=== PATIENT | female | born 1970 | race Caucasian/White ===

== ENCOUNTER 2020-12-23 15:07 | Emergency (ER) | payer MEDICAID, OTHER ==
[2020-12-23] MEDS ORDERED: Insulin Glarg,Human.Rec.Analog 100 Unit/ML SUBCUT ONE (15:08)
--- NOTE | 2020-12-23 18:10 | EDM.PDOC ---
Scribed by Amanda Quarles 12/23/20 1810 for Leanne Cunningham NP ED HPI GENERAL MEDICAL PROBLEM - General Chief Complaint: Diabetic Complaint Stated Complaint: SUGAR LEVEL 548, RIGHT FINGER, LEG GONE NUMB Time Seen by Provider: 12/23/20 17:35 Source of Information: Reports: Patient, RN, RN Notes Reviewed History Limitations: Reports: No Limitations - History of Present Illness INITIAL COMMENTS - FREE TEXT/NARRATIVE: Patient is a 50-year-old female who presents to ER with complaint of elevated blood sugar. States she is out of her meds and pharmacy would not fill her insulin for her. States she has been experiencing blurred vision, dry mouth, numbness to right laterally and some fingers. Has not had insulin over 1 week. No diarrhea, shortness of breath, and frequent headaches (normal for her). She has had no nausea, vomiting, diarrhea, chest pain, fever, chills, open wounds. She has no had COVID. She has had 2 doses of COVID vaccination. Onset: Gradual Duration: Getting Worse Severity: Moderate Improves with: Reports: None Worsens with: Reports: None Associated Symptoms: Reports: No Other Symptoms - Related Data Allergies Allergy/AdvReac Type Severity Reaction Status Date / Time No Known Allergies Allergy Verified 12/23/20 16:31 Home Meds: Home Meds Cyclobenzaprine [Flexeril] 10 mg PO TID PRN 12/23/20 [History] FLUoxetine [PROzac] 40 mg PO DAILY 12/23/20 [History] Insulin Glargine,Hum.Rec.Anlog [Basaglar Kwikpen U-100] 50 units SQ BID 12/23/20 [History] Liraglutide [Victoza 2-Nishant] 1.2 mg INJECT DAILY 12/23/20 [History] Omeprazole 20 mg PO DAILY 12/23/20 [History] Ondansetron [Zofran ODT] 4 mg PO Q6H PRN 12/23/20 [History] Promethazine [Phenergan] 25 mg PO Q8H PRN 12/23/20 [History] SUMAtriptan succinate [Imitrex] 100 mg PO ASDIRECTED 12/23/20 [History] atorvaSTATin [Lipitor] 80 mg PO BEDTIME 12/23/20 [History] glipiZIDE [Glucotrol XL] 20 mg PO BID 12/23/20 [History] oxyCODONE ER [OxyCONTIN] 10 mg PO Q6H PRN 12/23/20 [History] Past Medical History Endocrine/Metabolic History: Reports: Diabetes, Type II - Past Surgical History GI Surgical History: Reports: Lysis of Adhesions Social & Family History - Tobacco Use Tobacco Use Status *Q: Never Tobacco User - Caffeine Use Caffeine Use: Reports: Coffee, Energy Drinks, Soda, Tea - Recreational Drug Use Recreational Drug Use: No ED ROS GENERAL - Review of Systems Review Of Systems: Comprehensive ROS is negative, except as noted in HPI. ED EXAM GENERAL NO PERIP PULSE - Physical Exam Exam: See Below Exam Limited By: No Limitations General Appearance: Alert, WD/WN, No Apparent Distress Eye Exam: Bilateral Eye: EOMI, Normal Inspection, PERRL Ears: Normal External Exam, Normal Canal, Hearing Grossly Normal, Normal TMs Nose: Normal Inspection, Normal Mucosa, No Blood Throat/Mouth: Normal Inspection, Normal Lips, Normal Teeth, Normal Gums, Normal Oropharynx, Normal Voice, No Airway Compromise Head: Atraumatic, Normocephalic Neck: Normal Inspection, Supple, Non-Tender, Full Range of Motion Respiratory/Chest: No Respiratory Distress, Lungs Clear, Normal Breath Sounds, No Accessory Muscle Use, Chest Non-Tender Cardiovascular: Normal Peripheral Pulses, Regular Rate, Rhythm, No Edema, No Gallop, No JVD, No Murmur, No Rub GI/Abdominal: Normal Bowel Sounds, Soft, Non-Tender, No Organomegaly, No Distention, No Abnormal Bruit, No Mass (Female) Exam: Deferred Rectal (Female) Exam: Deferred Back Exam: Normal Inspection, Full Range of Motion, NT Extremities: Normal Inspection, Normal Range of Motion, Non-Tender, Normal Capillary Refill, No Pedal Edema Neurological: Other (right pinky finger numbness as well as numbness to lateral right leg. ) Psychiatric: Normal Affect, Normal Mood Lymphatic: No Adenopathy Course - Vital Signs Last Recorded V/S: Last Vital Signs Temp 98 F 12/23/20 16:36 Pulse 96 12/23/20 16:36 Resp 20 12/23/20 16:36 BP 123/78 12/23/20 16:36 Pulse Ox 97 12/23/20 16:36 - Orders/Labs/Meds Orders: Active Orders 24 hr Category Date Time Status POC Glucose [Blood Glucose Check, Bedside] [RC] ONETIME Care 12/23/20 16:43 Active Dextrose 50% in Water Med 12/23/20 18:30 Active 50 ml IV Q15M PRN Glucagon,Human Recombinant [GlucaGen] Med 12/23/20 18:30 Active 1 mg IM Q15M PRN Medication Orders Dextrose/Water (50% Dextrose In Water 50 Ml Syringe) 50 ml IV Q15M PRN PRN Reason: Hypoglycemia Glucagon (Glucagon,Human Recombinant 1 Mg Vial) 1 mg IM Q15M PRN PRN Reason: Hypoglycemia Labs: Laboratory Tests 12/23/20 12/23/20 12/23/20 Range/Units 16:17 18:03 18:03 WBC 9.2 (5.0-10.0) 10^3/uL RBC 4.87 (4.2-5.4) 10^6/uL Hgb 13.9 (12.0-16.0) g/dL Hct 42.9 (37.0-47.0) % MCV 88.1 (80-100) fL MCH 28.5 (27.0-34.0) pg MCHC 32.4 L (33.0-35.0) g/dL Plt Count 380 (150-450) 10^3/uL Neut % (Auto) 64.5 (42.2-75.2) % Lymph % (Auto) 28.4 (20.5-50.1) % Day % (Auto) 6.0 (2-8) % Eos % (Auto) 0.8 L (1.0-3.0) % Baso % (Auto) 0.3 (0.0-1.0) % Sodium 136 (136-145) mmol/L Potassium 4.0 (3.5-5.1) mmol/L Chloride 99 (98-107) mmol/L Carbon Dioxide 27 (21-32) mmol/L Anion Gap 14.0 H (7-13) mEq/L BUN 10 (7-18) mg/dL Creatinine 1.30 H (0.55-1.02) mg/dL Est Cr Clr Drug Dosing 45.55 mL/min Estimated GFR (MDRD) 43 BUN/Creatinine Ratio 7.7 (No establ ref range) Glucose 338 H (70-99) mg/dL POC Glucose 365 H (70-99) mg/dL Calcium 9.0 (8.5-10.1) mg/dL Total Bilirubin 0.5 (0.2-1.0) mg/dL AST 32 (15-37) U/L ALT 49 (14-59) U/L Alkaline Phosphatase 202 H (46-116) U/L Total Protein 7.6 (6.4-8.2) g/dL Albumin 3.3 L (3.4-5.0) g/dL Globulin 4.3 Albumin/Globulin Ratio 0.77 Ketones // Range/Units 18:04 WBC (5.0-10.0) 10^3/uL RBC (4.2-5.4) 10^6/uL Hgb (12.0-16.0) g/dL Hct (37.0-47.0) % MCV (80-100) fL MCH (27.0-34.0) pg MCHC (33.0-35.0) g/dL Plt Count (150-450) 10^3/uL Neut % (Auto) (42.2-75.2) % Lymph % (Auto) (20.5-50.1) % Day % (Auto) (2-8) % Eos % (Auto) (1.0-3.0) % Baso % (Auto) (0.0-1.0) % Sodium (136-145) mmol/L Potassium (3.5-5.1) mmol/L Chloride (98-107) mmol/L Carbon Dioxide (21-32) mmol/L Anion Gap (7-13) mEq/L BUN (7-18) mg/dL Creatinine (0.55-1.02) mg/dL Est Cr Clr Drug Dosing mL/min Estimated GFR (MDRD) BUN/Creatinine Ratio (No establ ref range) Glucose (70-99) mg/dL POC Glucose (70-99) mg/dL Calcium (8.5-10.1) mg/dL Total Bilirubin (0.2-1.0) mg/dL AST (15-37) U/L ALT (14-59) U/L Alkaline Phosphatase (46-116) U/L Total Protein (6.4-8.2) g/dL Albumin (3.4-5.0) g/dL Globulin Albumin/Globulin Ratio Ketones Negative Meds: Medications Generic Name Dose Route Start Last Admin Trade Name Robyn PRN Reason Stop Dose Admin Dextrose/Water 50 ml 12/23/20 18:30 50% Dextrose In Water 50 Ml Syringe IV Q15M PRN Hypoglycemia Glucagon 1 mg 12/23/20 18:30 Glucagon,Human Recombinant 1 Mg Vial IM Q15M PRN Hypoglycemia Discontinued Medications Generic Name Dose Route Start Last Admin Trade Name Robyn PRN Reason Stop Dose Admin Insulin Human Regular 5 unit 12/23/20 18:30 Insulin Regular, Human 100 Units/Ml 3 Ml Vial SUBCUT 12/23/20 18:31 ONETIME ONE Departure - Departure Time of Disposition: 18:47 Disposition: Home, Self-Care 01 Condition: Good Clinical Impression: Hyperglycemia - Discharge Information *PRESCRIPTION DRUG MONITORING PROGRAM REVIEWED*: No *COPY OF PRESCRIPTION DRUG MONITORING REPORT IN PATIENT GALLITO: No Forms: ED Department Discharge Additional Instructions: Levemir pen 40 units bid until you get your normal insulin Resume your normal doses and prescriptions of insulin when you get it Check you blood sugars 3-4 times daily Follow up with your primary care facility Sepsis Event Note (ED) - Evaluation Sepsis Screening Result: No Definite Risk - Focused Exam Vital Signs: Vital Signs Temp Pulse Resp BP Pulse Ox 12/23/20 16:36 98 F 96 20 123/78 97 - My Orders Last 24 Hours: My Active Orders 12/23/20 16:43 POC Glucose [Blood Glucose Check, Bedside] [RC] ONETIME 12/23/20 18:30 Dextrose 50% in Water 50 ml IV Q15M PRN Glucagon,Human Recombinant [GlucaGen] 1 mg IM Q15M PRN - Assessment/Plan Last 24 Hours: My Active Orders 12/23/20 16:43 POC Glucose [Blood Glucose Check, Bedside] [RC] ONETIME 12/23/20 18:30 Dextrose 50% in Water 50 ml IV Q15M PRN Glucagon,Human Recombinant [GlucaGen] 1 mg IM Q15M PRN I have read and agree with the documentation that has been completed regarding this visit. By signing this record, I attest that the documentation was completed in my physical presence and is an accurate record of the encounter.
[2020-12-23] MEDS ORDERED: 50% Dextrose in Water 50 ML Syringe IV PRN (18:30)
[2020-12-23] MEDS ORDERED: Insulin Regular, Human 100 Units/ML 3 ML Vial SUBCUT ONE (18:30)
[2020-12-23] MEDS ORDERED: Glucagon,Human Recombinant 1 MG Vial IM PRN (18:30)
== END 2020-12-23 19:29 | disposition home or self-care (01) ==
LOC: DL.ED 15:07
DX: E11.65 Type 2 diabetes mellitus with hyperglycemia (principal); Z79.4 Long term (current) use of insulin; Z79.899 Other long term (current) drug therapy
CPT/HCPCS: 36415; 80053; 82009; 82947; 85025; 99284; J1815-GY

== ENCOUNTER 2024-02-03 17:11 | Emergency (ER) | payer MEDICAID ==
[2024-02-03 17:46] LABS: APPEARANCE,URINE CLOUDY (CLEAR); BILIRUBIN,URINE NEGATIVE (NEGATIVE); COLOR,URINE AMBER (YELLOW); GLUCOSE,URINE NEGATIVE (NEGATIVE); KETONES,URINE NEGATIVE (NEGATIVE); LEUKOCYTE ESTERASE,URINE TRACE (NEGATIVE); NITRITE,URINE NEGATIVE (NEGATIVE); OCCULT BLOOD,URINE MODERATE (NEGATIVE); PH,URINE 6.5 (5.0-9.0); PROTEIN,URINE 100 (NEGATIVE); UROBILINOGEN,URINE 0.2 mg/dL (0.2-1.0)
[2024-02-03 17:55] LABS: AMORPHOUS SEDIMENT,URINE MODERATE /HPF (NOT SEEN); BACTERIA,URINE MANY /HPF (0-FEW/HPF); EPITHELIAL CELLS,URINE RARE /HPF (NOT SEEN); MUCUS,URINE FEW /LPF (NOT SEEN); RBC,URINE PACKED /HPF (0-5); WBC,URINE 0-5 /HPF (0-5/HPF)
[2024-02-03 20:39] LABS: BASOPHILS PERCENT AUTO 0.2 % (0.0-1.0); EOSINOPHILS PERCENT AUTO 1.6 % (1.0-3.0); HEMATOCRIT 40.7 % (37.0-47.0); HEMOGLOBIN 12.7 g/dL (12.0-16.0); LYMPHOCYTES PERCENT AUTO 24.3 % (20.5-50.1); MEAN CORPUSCULAR HEMOGLOBIN 29.2 pg (27.0-34.0); MEAN CORPUSCULAR HGB CONC 31.2 g/dL (33.0-35.0); MEAN CORPUSCULAR VOLUME 93.6 fL (80-100); NEUTROPHILS PERCENT AUTO 65.9 % (42.2-75.2); PLATELET COUNT,PLT 401 10^3/uL (150-450); RED BLOOD CELL COUNT 4.35 10^6/uL (4.2-5.4); WHITE BLOOD CELL COUNT,WBC 13.4 10^3/uL (5.0-10.0)
[2024-02-03 20:51] LABS: ALANINE AMINOTRANSFERASE,ALT 28 U/L (14-59); ALBUMIN 3.2 g/dL (3.4-5.0); ALKALINE PHOSPHATASE 114 U/L (46-116); ANION GAP 13.3 mEq/L (7-13); ASPARTATE AMNIOTRANSFERASE,AST 25 U/L (15-37); BILIRUBIN TOTAL 0.2 mg/dL (0.2-1.0); BLOOD UREA NITROGEN,BUN 20 mg/dL (7-18); BUN/CREATININE RATIO 13.6 (No establ ref range); CALCIUM 9.4 mg/dL (8.5-10.1); CARBON DIOXIDE,CO2 28 mmol/L (21-32); CHLORIDE,CL 105 mmol/L (98-107); CREATININE 1.47 mg/dL (0.55-1.02); GLUCOSE RANDOM 67 mg/dL (70-99); POTASSIUM,K 4.3 mmol/L (3.5-5.1); PROTEIN TOTAL,TP 7.5 g/dL (6.4-8.2); SODIUM,NA 142 mmol/L (136-145)
[2024-02-03 20:53] LABS: A/G RATIO 0.74; ESTIMATED GFR 42 mL/min (>=60)
[2024-02-03] MEDS: Take Home: Ciprofloxacin HCl 500 MG, 6 Tab Pack PO ONE (23:00)
== END 2024-02-03 21:30 | disposition left against medical advice (07) ==
LOC: DL.ED 17:11
DX: N17.9 Acute kidney failure, unspecified (principal); N30.01 Acute cystitis with hematuria; R80.9 Proteinuria, unspecified; E11.9 Type 2 diabetes mellitus without complications; Z79.899 Other long term (current) drug therapy; Z79.84 Long term (current) use of oral hypoglycemic drugs
CPT/HCPCS: 36415; 80053; 81001; 85025; 87086; 87088; 87186; 99284; A9270

== ENCOUNTER 2024-05-17 17:42 | Emergency (ER) | payer BC ==
[2024-05-17] MEDS ORDERED: Sodium Chloride 0.9% 10 ML Syringe FLUSH PRN (18:05)
[2024-05-17] MEDS: cefTRIAXone 2 GM Vial IVPUSH ONE (18:24)
== END 2024-05-17 18:45 | disposition home or self-care (01) ==
LOC: DL.ED 17:42
DX: S61.253A Open bite of left middle finger without damage to nail, initial encounter (principal); E11.9 Type 2 diabetes mellitus without complications; Z79.899 Other long term (current) drug therapy; Z79.84 Long term (current) use of oral hypoglycemic drugs; Z79.4 Long term (current) use of insulin; W55.01XA Bitten by cat, initial encounter
CPT/HCPCS: 96374; 99283; J0696

== ENCOUNTER 2024-06-06 16:43 | Emergency (ER) | payer BC ==
[2024-06-06 17:39] LABS: BASOPHILS PERCENT AUTO 0.4 % (0.0-1.0); EOSINOPHILS PERCENT AUTO 0.8 % (1.0-3.0); HEMATOCRIT 47.3 % (37.0-47.0); HEMOGLOBIN 15.1 g/dL (12.0-16.0); LYMPHOCYTES PERCENT AUTO 27.6 % (20.5-50.1); MEAN CORPUSCULAR HEMOGLOBIN 28.7 pg (27.0-34.0); MEAN CORPUSCULAR HGB CONC 31.9 g/dL (33.0-35.0); MEAN CORPUSCULAR VOLUME 89.9 fL (80-100); MONOCYTES PERCENT AUTO 8.4 % (2-8); NEUTROPHILS PERCENT AUTO 62.8 % (42.2-75.2); PLATELET COUNT,PLT 514 10^3/uL (150-450); RED BLOOD CELL COUNT 5.26 10^6/uL (4.2-5.4)
[2024-06-06 17:59] LABS: A/G RATIO 0.8; ALBUMIN 3.5 g/dL (3.4-5.0); ANION GAP 11.6 mEq/L (7-13); BILIRUBIN TOTAL 0.2 mg/dL (0.2-1.0); BUN/CREATININE RATIO 10.7 (No establ ref range); CALCIUM 9.9 mg/dL (8.5-10.1); CREATININE 1.5 mg/dL (0.55-1.02); EST CRCL DRUG DOSING (CG) 38.13 mL/min; MAGNESIUM 1.8 mg/dL (1.8-2.4); POTASSIUM,K 4.6 mmol/L (3.5-5.1)
[2024-06-06] MEDS: Acetaminophen 325 MG Tab PO ONE (18:19)
[2024-06-06] MEDS: SUMAtriptan 6 MG/0.5 ML SDV SUBCUT ONE (18:20)
[2024-06-06] MEDS: Sodium Chloride 0.9% 1,000 ML IV ONE (18:20)
[2024-06-06] MEDS: Ondansetron 4 MG/2 ML SDV IVPUSH ONE (18:20)
[2024-06-06] MEDS: Ketorolac 30 MG/ML SDV IVPUSH ONE (19:23)
[2024-06-06] MEDS: Metoclopramide 10 MG/2 ML SDV IVPUSH ONE (19:23)
== END 2024-06-06 20:07 | disposition home or self-care (01) ==
LOC: DL.ED 16:43
DX: G43.909 Migraine, unspecified, not intractable, without status migrainosus (principal); N18.9 Chronic kidney disease, unspecified; E11.22 Type 2 diabetes mellitus with diabetic chronic kidney disease; Z79.899 Other long term (current) drug therapy; Z79.4 Long term (current) use of insulin
CPT/HCPCS: 36415; 70450; 80053; 83735; 85025; 96361; 96372; 96374; 96375; 99284; 99284-25; A9270-GY; J1885; J2405; J2765; J3030; J7030

== ENCOUNTER 2025-07-08 10:13 | Inpatient (IN) | payer BC ==
[2025-07-08] MEDS ORDERED: Sodium Chloride 0.9% 10 ML Syringe FLUSH PRN (10:33)
[2025-07-08 10:57] LABS: BASOPHILS PERCENT AUTO 0.2 % (0.0-1.0); EOSINOPHILS PERCENT AUTO 0.3 % (1.0-3.0); LYMPHOCYTES PERCENT AUTO 6.0 % (20.5-50.1); MONOCYTES PERCENT AUTO 5.6 % (2-8); NEUTROPHILS PERCENT AUTO 87.9 % (42.2-75.2); PLATELET COUNT,PLT 215 10^3/uL (150-450); RED BLOOD CELL COUNT 3.78 10^6/uL (4.2-5.4); WHITE BLOOD CELL COUNT,WBC 18.1 10^3/uL (5.0-10.0)
[2025-07-08 11:17] LABS: ALANINE AMINOTRANSFERASE,ALT 66 U/L (14-59); ASPARTATE AMNIOTRANSFERASE,AST 162 U/L (15-37); BILIRUBIN TOTAL 0.4 mg/dL (0.2-1.0); BLOOD UREA NITROGEN,BUN 51 mg/dL (7-18); CARBON DIOXIDE,CO2 28 mmol/L (21-32); CHLORIDE,CL 96 mmol/L (98-107); CREATININE 3.99 mg/dL (0.55-1.02); EST CRCL DRUG DOSING (CG) 14.17 mL/min; GLUCOSE RANDOM 76 mg/dL (70-99); POTASSIUM,K 4.6 mmol/L (3.5-5.1); PROTEIN TOTAL,TP 6.9 g/dL (6.4-8.2); SODIUM,NA 134 mmol/L (136-145)
[2025-07-08 11:20] LABS: INR 1.0 (0.9-1.2); LACTIC ACID 1.6 mmol/L (0.4-2.0); PTT,PARTIAL THROMBOPLSTIN TIME 31.0 SEC (22.0-34.0)
[2025-07-08 11:26] LABS: A/G RATIO 0.53; ESTIMATED GFR 13 mL/min (>=60)
[2025-07-08 12:36] LABS: APPEARANCE,URINE SLIGHTLY CLOUDY (CLEAR); GLUCOSE,URINE NEGATIVE (NEGATIVE); OCCULT BLOOD,URINE LARGE (NEGATIVE)
[2025-07-08 13:06] LABS: MDMA (ECSTASY), URINE NEGATIVE (NEGATIVE); METHAMPHETAMINES,URINE NEGATIVE (NEGATIVE)
[2025-07-08 13:07] LABS: AMPHETAMINES,URINE NEGATIVE (NEGATIVE); BARBITURATES,URINE NEGATIVE (NEGATIVE); OPIATES,URINE NEGATIVE (NEGATIVE); OXYCODONE,URINE POSITIVE (NEGATIVE); PHENCYCLIDINE,URINE NEGATIVE (NEGATIVE); SQUAMOUS EPITHELIAL CELLS,UR MODERATE /HPF (NOT SEEN); TCA,URINE POSITIVE (NEGATIVE)
[2025-07-08] MEDS ORDERED: 50% Dextrose in Water 50 ML Syringe IVPUSH PRN ×2 (14:23→14:44)
[2025-07-08] MEDS ORDERED: Ondansetron 4 MG/2 ML SDV IVPUSH PRN (14:24)
[2025-07-08] MEDS: Norepinephrine Bit/D5W Premix 4 MG/250 ML BAG IV SCH (14:25)
[2025-07-08 14:59] LABS: PHOSPHORUS 1.8 mg/dL (2.6-4.7)
[2025-07-08] MEDS: 50% Dextrose in Water 50 ML Syringe IVPUSH PRN (15:24)
[2025-07-08] MEDS: Heparin Sodium 5,000 Units/ML Vial SUBCUT SCH (15:27)
[2025-07-08 15:41] LABS: LACTIC ACID 1.5 mmol/L (0.4-2.0)
[2025-07-08 15:52] LABS: T4 FREE 1.21 ng/dL (0.76-1.46); TSH ULTRASENSITIVE 1.78 uIU/mL (0.36-3.74)
[2025-07-08] MEDS ORDERED: Insulin Glarg,Human.Rec.Analog 100 Unit/ML 10 ML Vial SUBCUT SCH (21:00)
[2025-07-09 06:17] LABS: BASOPHILS PERCENT AUTO 0.3 % (0.0-1.0); EOSINOPHILS PERCENT AUTO 0.3 % (1.0-3.0); LYMPHOCYTES PERCENT AUTO 9.4 % (20.5-50.1); MONOCYTES PERCENT AUTO 6.2 % (2-8); NEUTROPHILS PERCENT AUTO 83.8 % (42.2-75.2); PLATELET COUNT,PLT 175 10^3/uL (150-450); RED BLOOD CELL COUNT 3.27 10^6/uL (4.2-5.4); WHITE BLOOD CELL COUNT,WBC 11.9 10^3/uL (5.0-10.0)
[2025-07-09 06:37] LABS: ALANINE AMINOTRANSFERASE,ALT 50.0 U/L (14-59); ASPARTATE AMNIOTRANSFERASE,AST 101.0 U/L (15-37); BILIRUBIN DIRECT 0.1 mg/dL (0.0-0.2); BILIRUBIN INDIRECT 0.2; BILIRUBIN TOTAL 0.3 mg/dL (0.2-1.0); BLOOD UREA NITROGEN,BUN 43.0 mg/dL (7-18); CARBON DIOXIDE,CO2 22.0 mmol/L (21-32); CHLORIDE,CL 102.0 mmol/L (98-107); CREATININE 3.2 mg/dL (0.55-1.02); EST CRCL DRUG DOSING (CG) 17.66 mL/min; GLUCOSE RANDOM 212.0 mg/dL (70-99); POTASSIUM,K 4.1 mmol/L (3.5-5.1); PROTEIN TOTAL,TP 5.4 g/dL (6.4-8.2); SODIUM,NA 134.0 mmol/L (136-145)
[2025-07-09 06:46] LABS: A/G RATIO 0.42; ESTIMATED GFR 16.0 mL/min (>=60)
[2025-07-09] MEDS ORDERED: 50% Dextrose in Water 50 ML Syringe IVPUSH PRN (08:42)
[2025-07-09] MEDS: Magnesium Sulfate 2 GM/50 mL 2 GM in Premix Bag 1 BAG IV ONE (08:48)
[2025-07-09] MEDS: Potassium Phosphates 15 MMOLE in Sodium Chloride 0.9% 100 ML IV ONE (08:52)
[2025-07-09] MEDS: Phosphorus #1 250 MG Tab PO SCH (08:55)
[2025-07-09 09:31] LABS: IRON,FE 8.0 ug/dL (50-170); PERCENT FE SATURATION 5.9 % (20.0-50.0)
[2025-07-09] MEDS: Insulin Glarg,Human.Rec.Analog 100 Unit/ML 10 ML Vial SUBCUT SCH ×2 (09:46→10:09)
[2025-07-09 10:19] LABS: FOLIC ACID > 20.0 ng/mL (8.6-58.9)
[2025-07-10 05:55] LABS: PLATELET COUNT,PLT 188 10^3/uL (150-450); RED BLOOD CELL COUNT 3.54 10^6/uL (4.2-5.4); WHITE BLOOD CELL COUNT,WBC 9.8 10^3/uL (5.0-10.0)
[2025-07-10 06:01] LABS: BASOPHILS PERCENT AUTO 0.3 % (0.0-1.0); EOSINOPHILS PERCENT AUTO 1.0 % (1.0-3.0); LYMPHOCYTES PERCENT AUTO 17.1 % (20.5-50.1); MONOCYTES PERCENT AUTO 10.1 % (2-8); NEUTROPHILS PERCENT AUTO 71.5 % (42.2-75.2)
[2025-07-10 06:15] LABS: ALANINE AMINOTRANSFERASE,ALT 50.0 U/L (14-59); ASPARTATE AMNIOTRANSFERASE,AST 67.0 U/L (15-37); BILIRUBIN DIRECT 0.2 mg/dL (0.0-0.2); BILIRUBIN INDIRECT 0.2; BILIRUBIN TOTAL 0.4 mg/dL (0.2-1.0); BLOOD UREA NITROGEN,BUN 36.0 mg/dL (7-18); CARBON DIOXIDE,CO2 26.0 mmol/L (21-32); CHLORIDE,CL 102.0 mmol/L (98-107); CREATININE 2.73 mg/dL (0.55-1.02); EST CRCL DRUG DOSING (CG) 20.7 mL/min; GLUCOSE RANDOM 149.0 mg/dL (70-99); PHOSPHORUS 3.2 mg/dL (2.6-4.7); POTASSIUM,K 4.2 mmol/L (3.5-5.1); PROTEIN TOTAL,TP 5.9 g/dL (6.4-8.2); SODIUM,NA 136.0 mmol/L (136-145)
[2025-07-10 06:18] LABS: A/G RATIO 0.37; ESTIMATED GFR 20.0 mL/min (>=60)
[2025-07-10 06:19] LABS: BAND PERCENT MAN 3 %; EOSINOPHILS PERCENT MAN 1 % (1-3); LYMPHOCYTES PERCENT MAN 18 % (20-50); MONOCYTES PERCENT MAN 7 % (2-8); SEG NEUTROPHILS PERCENT MAN 71 % (42-75)
[2025-07-10 07:42] LABS: B-TYPE NATRIURETIC PEPTIDE,BNP 325 pg/ml (0-100)
[2025-07-10 07:43] LABS: CREATINE KINASE,CK 567 U/L (16-191)
[2025-07-10] MEDS: Levofloxacin/Dextrose 5%-Water 750 MG in Premix Bag 1 BAG IV SCH (10:42)
[2025-07-12] MEDS ORDERED: Non-Formulary Medication 1 Each (Tirzepatide [Mounjaro] 2.5 MG/0.5 ML Pen.Injctr) SQ SCH (09:00)
[2025-07-13 11:42] LABS: IONIZED CA@PH7.4 1.16 mmol/L (1.09-1.30); IONIZED CALCIUM 1.12 mmol/L (1.09-1.30)
== END 2025-07-11 10:00 | disposition home or self-care (01) | DRG 720 ==
LOC: DL.ED 10:13 → DL.MS 12:31
PROVIDERS: ADMIT Internal Medicine; ATTEND Internal Medicine
PROC: 3E03329 Introduction of Other Anti-infective into Peripheral Vein, Percutaneous Approach (ICD-10-PCS; principal; 2025-07-08)
PROC: 0T9B70Z Drainage of Bladder with Drainage Device, Via Natural or Artificial Opening (ICD-10-PCS; 2025-07-08)
PROC: 3E033XZ Introduction of Vasopressor into Peripheral Vein, Percutaneous Approach (ICD-10-PCS; 2025-07-08)
PROC: 02HV33Z Insertion of Infusion Device into Superior Vena Cava, Percutaneous Approach (ICD-10-PCS; 2025-07-08)
PROC: B548ZZA Ultrasonography of Superior Vena Cava, Guidance (ICD-10-PCS; 2025-07-08)
PROC: 02PYX3Z Removal of Infusion Device from Great Vessel, External Approach (ICD-10-PCS; 2025-07-08)
PROC: 0TPB70Z Removal of Drainage Device from Bladder, Via Natural or Artificial Opening (ICD-10-PCS; 2025-07-08)
DX: A41.51 Sepsis due to Escherichia coli [E. coli] (principal); R65.21 Severe sepsis with septic shock; G92.8 Other toxic encephalopathy; N17.9 Acute kidney failure, unspecified; E86.0 Dehydration; E87.20 Acidosis, unspecified; D50.9 Iron deficiency anemia, unspecified; N39.0 Urinary tract infection, site not specified; E83.42 Hypomagnesemia; E83.52 Hypercalcemia; E11.22 Type 2 diabetes mellitus with diabetic chronic kidney disease; N18.9 Chronic kidney disease, unspecified; G43.909 Migraine, unspecified, not intractable, without status migrainosus; E83.39 Other disorders of phosphorus metabolism; E11.65 Type 2 diabetes mellitus with hyperglycemia; E78.5 Hyperlipidemia, unspecified; F32.A Depression, unspecified; E66.01 Morbid (severe) obesity due to excess calories; F41.9 Anxiety disorder, unspecified; G89.29 Other chronic pain; K21.9 Gastro-esophageal reflux disease without esophagitis; Z79.2 Long term (current) use of antibiotics; Z79.4 Long term (current) use of insulin; Z79.84 Long term (current) use of oral hypoglycemic drugs; Z79.1 Long term (current) use of non-steroidal anti-inflammatories (NSAID); Z98.890 Other specified postprocedural states; Z68.38 Body mass index [BMI] 38.0-38.9, adult
CPT/HCPCS: 36415; 51702; 70450; 71045; 80048; 80053; 80076; 80202; 80305-QW; 81001; 82330; 82550; 82607; 82746; 82947; 83540; 83550; 83605; 83735; 83880; 84100; 84145; 84439; 84443; 84484; 85025; 85610; 85730; 86140; 87040; 87077; 87086; 87088; 87186; 94010; 94667; 96361; 96374; 99211; 99232; 99233; 99239; 99285; 99285-25; A9270-GY; C1751; J0692; J0696; J1644; J1815-GY; J1956; J3373; J3475; J3490; J7030; J7040; Q0138